=== PATIENT | male | born 1985 | race African-American/Black ===

== ENCOUNTER 2018-09-27 11:31 | Emergency (ER) | payer MEDICAID ==
[~2018-09-27] VITALS: Ht 172.7 cm; Wt 64.0 kg
[2018-09-27] MEDS ORDERED: BUTALBITAL/ACETAMINOPHEN/CAFFEINE 50/325/40MG TABLET PO ONE (14:45)
[2018-09-27 15:57] VITALS: BP 108/78
== END 2018-09-27 15:58 | disposition home or self-care (01) ==
LOC: ER 11:31
DX: R51 Headache (principal); F12.10 Cannabis abuse, uncomplicated
CPT/HCPCS: 99283

== ENCOUNTER 2018-12-04 22:38 | Emergency (ER) | payer MEDICAID ==
[~2018-12-04] VITALS: Ht 172.7 cm; Wt 64.0 kg
[2018-12-04 22:48] VITALS: BP 100/62
== END 2018-12-04 23:25 | disposition home or self-care (01) ==
LOC: ER 22:38
DX: F12.10 Cannabis abuse, uncomplicated (principal)
CPT/HCPCS: 99282